=== PATIENT | male | born 1965 | race Caucasian/White ===

== ENCOUNTER 2019-06-20 10:10 | Outpatient (REF) | payer MEDICAID, SELFPAY ==
[2019-06-20 20:26] LABS: COMMENT (LAB VIEW ONLY) 122.82 mg/dL
[2019-06-20 20:43] LABS: ALT 78 U/L (16-63); AST 54 U/L (15-37); Albumin 4.4 g/dL (3.4-5.0); Alkaline Phosphatase 76 U/L (46-116); Anion Gap 11.9 mmol/L (3-11); BUN 12 mg/dL (7-18); Bilirubin, Total 1.1 mg/dL (0.2-1.0); CO2 28.1 mmol/L (21.0-32.0); CREATININE 1.05 mg/dL (0.70-1.30); Calcium 9.7 mg/dL (8.5-10.1); Chloride 100 mmol/L (98-107); Glucose 126 mg/dL (70-100); Potassium 4.1 mmol/L (3.5-5.1); Sodium 140 mmol/L (136-145); Total Protein 7.3 g/dL (6.4-8.2)
== END 2019-06-20 10:30 ==
LOC: NCHCN 10:10
PROVIDERS: Visit Provider Nurse Practitioner Family
DX: E11.9 Type 2 diabetes mellitus without complications (principal); I10 Essential (primary) hypertension; F10.21 Alcohol dependence, in remission; K76.0 Fatty (change of) liver, not elsewhere classified; E66.9 Obesity, unspecified
CPT/HCPCS: 80053; 82043; 82570

== ENCOUNTER 2020-06-02 10:08 | Outpatient (REF) | payer MEDICAID, SELFPAY ==
[2020-06-02 22:26] LABS: ALT 155 U/L (16-63); AST 96 U/L (15-37); Alkaline Phosphatase 60 U/L (46-116); Anion Gap 8.9 mmol/L (3-11); BUN 20 mg/dL (7-18); Bilirubin, Total 1.3 mg/dL (0.2-1.0); CO2 29.1 mmol/L (21.0-32.0); CREATININE 1.01 mg/dL (0.70-1.30); Calcium 9.7 mg/dL (8.5-10.1); Calculated LDL 77 mg/dL (<100); Chloride 102 mmol/L (98-107); Cholesterol 150 mg/dL (<200); Glucose 149 mg/dL (74-106); HDL Cholesterol 48 mg/dL (40-60); Magnesium 1.1 mg/dL (1.8-2.4); Potassium 3.2 mmol/L (3.5-5.1); Sodium 140 mmol/L (136-145); Total Protein 6.9 g/dL (6.4-8.2); Triglyceride 125 mg/dL (<150)
== END 2020-06-02 10:28 ==
LOC: NCHCN 10:08
PROVIDERS: Visit Provider Nurse Practitioner Family
DX: E11.9 Type 2 diabetes mellitus without complications (principal); I10 Essential (primary) hypertension; E78.5 Hyperlipidemia, unspecified
CPT/HCPCS: 80053; 80061; 83735

== ENCOUNTER 2020-06-08 11:43 | Outpatient (REF) | payer MEDICAID, SELFPAY ==
[2020-06-08 21:30] LABS: Magnesium 1.3 mg/dL (1.8-2.4); Potassium 3.6 mmol/L (3.5-5.1)
== END 2020-06-08 12:03 ==
LOC: NCHCN 11:43
PROVIDERS: PCP Nurse Practitioner Family; Visit Provider Nurse Practitioner Family
DX: E83.42 Hypomagnesemia (principal); E87.6 Hypokalemia
CPT/HCPCS: 83735; 84132

== ENCOUNTER 2020-06-24 13:07 | Outpatient (REF) | payer MEDICAID, SELFPAY ==
[2020-06-24 22:14] LABS: Magnesium 1.4 mg/dL (1.8-2.4)
== END 2020-06-24 13:27 ==
LOC: NCHCN 13:07
PROVIDERS: PCP Nurse Practitioner Family; Visit Provider Nurse Practitioner Family
DX: E83.42 Hypomagnesemia (principal)
CPT/HCPCS: 83735

== ENCOUNTER 2020-11-30 14:22 | Outpatient (REF) | payer MEDICAID, SELFPAY ==
[2020-11-30 22:02] LABS: ALT 79 U/L (16-63); AST 88 U/L (15-37); Alkaline Phosphatase 63 U/L (46-116); Anion Gap 11.2 mmol/L (3-11); BUN 11 mg/dL (7-18); Bilirubin, Total 0.8 mg/dL (0.2-1.0); CO2 27.8 mmol/L (21.0-32.0); CREATININE 0.9 mg/dL (0.70-1.30); Calcium 9.2 mg/dL (8.5-10.1); Chloride 99 mmol/L (98-107); Glucose 115 mg/dL (74-106); Magnesium 1.6 mg/dL (1.8-2.4); Potassium 3.7 mmol/L (3.5-5.1); Sodium 138 mmol/L (136-145)
[2020-11-30 22:08] LABS: COMMENT (LAB VIEW ONLY) 15.95 mg/dL; Microalb ug/mg Crea 23.8 ug/mg Cr
== END 2020-11-30 14:23 | disposition home or self-care (01) ==
LOC: NCHCN 14:22
PROVIDERS: PCP Nurse Practitioner Family; Visit Provider Nurse Practitioner Family
DX: E11.9 Type 2 diabetes mellitus without complications (principal); K76.0 Fatty (change of) liver, not elsewhere classified; I10 Essential (primary) hypertension; E83.42 Hypomagnesemia
CPT/HCPCS: 80053; 82043; 82570; 83735

== ENCOUNTER 2021-11-16 14:55 | Outpatient (REF) | payer MEDICAID, SELFPAY | END 2021-11-16 14:56 | disposition home or self-care (01) | LOC: NCHCN 14:55 | PROVIDERS: PCP Nurse Practitioner Family; Visit Provider Nurse Practitioner Family ==

== ENCOUNTER 2022-01-05 09:38 | Outpatient (REF) | payer MEDICAID, SELFPAY ==
[2022-01-05 14:42] LABS: HCT 42.2 % (40.0-50.0); HGB 14.3 g/dL (13.5-17.5); MCH 33.1 pg (27.0-33.0); MCHC 33.9 % (32.0-36.0); MCV 98 fL (80-95); MPV 10.1 fL (8.0-11.0); Platelet Count 146 10^3/uL (130-400); RBC 4.32 10^6/uL (4.36-5.78); RDW 12.3 % (11.8-14.1); RDW-SD 44.9 fL; WBC 5.59 10^3/uL (4.4-10.8)
[2022-01-05 15:00] LABS: Prothrombin Time 10.2 sec (9.3-11.0)
[2022-01-05 15:17] LABS: ALT 66 U/L (16-63); AST 86 U/L (15-37); Albumin 4.3 g/dL (3.4-5.0); Alkaline Phosphatase 82 U/L (46-116); Anion Gap 14.4 mmol/L (3-11); BUN 24 mg/dL (7-18); CO2 28.6 mmol/L (21.0-32.0); CREATININE 1.4 mg/dL (0.70-1.30); Calcium 9.3 mg/dL (8.5-10.1); Chloride 96 mmol/L (98-107); Estimated GFR 52.24 (mL/min/1.73m2); Glucose 172 mg/dL (74-106); Magnesium 0.9 mg/dL (1.8-2.4); Sodium 139 mmol/L (136-145); Total Protein 7.5 g/dL (6.4-8.2); Vitamin B12 596 pg/mL (193-986)
[2022-01-05 15:24] LABS: Hemoglobin A1C 6.6 % (<5.7)
[2022-01-05 15:27] LABS: Potassium 2.9 mmol/L (3.5-5.1)
[2022-01-05 15:38] LABS: Bilirubin, Total 2.3 mg/dL (0.2-1.0)
== END 2022-01-05 09:39 | disposition home or self-care (01) ==
LOC: NCHCN 09:38
PROVIDERS: PCP Nurse Practitioner Family; Visit Provider Nurse Practitioner Family
DX: E78.5 Hyperlipidemia, unspecified (principal); K76.0 Fatty (change of) liver, not elsewhere classified; F10.20 Alcohol dependence, uncomplicated; E83.42 Hypomagnesemia; I10 Essential (primary) hypertension; E11.9 Type 2 diabetes mellitus without complications; E87.6 Hypokalemia; R74.8 Abnormal levels of other serum enzymes
CPT/HCPCS: 80053; 85027; 82607; 83036; 83735; 85610

== ENCOUNTER 2022-01-06 10:01 | Outpatient (REF) | payer MEDICAID, SELFPAY ==
[2022-01-06 15:12] LABS: Potassium 3.5 mmol/L (3.5-5.1)
== END 2022-01-06 10:02 | disposition home or self-care (01) ==
LOC: NCHCN 10:01
PROVIDERS: PCP Nurse Practitioner Family; Visit Provider Nurse Practitioner Family
DX: E87.6 Hypokalemia (principal)
CPT/HCPCS: 84132

== ENCOUNTER 2022-07-05 14:49 | Outpatient (REF) | payer MEDICAID, SELFPAY ==
[2022-07-05 21:47] LABS: COMMENT (LAB VIEW ONLY) 41.91 mg/dL; Microalb ug/mg Crea 60.4 ug/mg Cr
== END 2022-07-05 14:50 | disposition home or self-care (01) ==
LOC: NCHCN 14:49
PROVIDERS: PCP Nurse Practitioner Family; Visit Provider Nurse Practitioner Family
DX: E11.9 Type 2 diabetes mellitus without complications (principal)
CPT/HCPCS: 82043; 82570

== ENCOUNTER 2022-12-29 17:31 | Outpatient (REF) | payer MEDICAID, SELFPAY ==
[2022-12-29 14:51] LABS: HCT 42.6 % (40.0-50.0); HGB 14.3 g/dL (13.5-17.5); MCH 32.8 pg (27.0-33.0); MCHC 33.6 % (32.0-36.0); MCV 98 fL (80-95); MPV 10.1 fL (8.0-11.0); Platelet Count 178 10^3/uL (130-400); RBC 4.36 10^6/uL (4.36-5.78); RDW 11.9 % (11.8-14.1); RDW-SD 43.2 fL; WBC 3.44 10^3/uL (4.4-10.8)
[2022-12-29 15:02] LABS: Prothrombin Time 10.4 sec (9.3-11.0)
[2022-12-29 15:16] LABS: ALT 75 U/L (16-63); AST 67 U/L (15-37); Albumin 4.1 g/dL (3.4-5.0); Alkaline Phosphatase 89 U/L (46-116); BUN 14 mg/dL (7-18); Bilirubin, Total 1.7 mg/dL (0.2-1.0); CREATININE 1.2 mg/dL (0.70-1.30); Calcium 9.7 mg/dL (8.5-10.1); Chloride 104 mmol/L (98-107); Glucose 117 mg/dL (74-106); Potassium 3.6 mmol/L (3.5-5.1); Sodium 144 mmol/L (136-145); TSH (W/Ref FT4) 2.13 uIU/mL (0.36-3.74); Total Protein 7.8 g/dL (6.4-8.2)
[2022-12-29 15:26] LABS: Hemoglobin A1C 6.4 % (<5.7)
== END 2022-12-29 17:32 | disposition home or self-care (01) ==
LOC: NCHCN 17:31
PROVIDERS: PCP Nurse Practitioner Family; Visit Provider Nurse Practitioner Family
DX: I48.0 Paroxysmal atrial fibrillation (principal); I10 Essential (primary) hypertension; E11.9 Type 2 diabetes mellitus without complications; E83.42 Hypomagnesemia
CPT/HCPCS: 80053; 85027; 83036; 83735; 84443; 85610

== ENCOUNTER 2023-07-17 21:04 | Outpatient (REF) | payer MEDICAID, SELFPAY ==
[2023-07-17 21:58] LABS: COMMENT (LAB VIEW ONLY) 161.65 mg/dL; Microalb ug/mg Crea 13.3 ug/mg Cr
== END 2023-07-17 21:05 | disposition home or self-care (01) ==
LOC: NCHCN 21:04
PROVIDERS: PCP Nurse Practitioner Family; Visit Provider Nurse Practitioner Family
DX: E11.9 Type 2 diabetes mellitus without complications (principal)
CPT/HCPCS: 82043; 82570

== ENCOUNTER 2024-01-18 09:54 | Outpatient (REF) | payer MEDICAID, SELFPAY ==
[2024-01-18 14:46] LABS: HCT 37.1 % (40.0-50.0); HGB 13.2 g/dL (13.5-17.5); MCH 34.4 pg (27.0-33.0); MCHC 35.6 % (32.0-36.0); MCV 97 fL (80-95); MPV 9.2 fL (8.0-11.0); Platelet Count 136 10^3/uL (130-400); RBC 3.84 10^6/uL (4.36-5.78); RDW 12.4 % (11.8-14.1); RDW-SD 43.2 fL; WBC 4.32 10^3/uL (4.4-10.8)
[2024-01-18 15:10] LABS: ALT 34 U/L (16-63); AST 75 U/L (15-37); Albumin 3.5 g/dL (3.4-5.0); Alkaline Phosphatase 79 U/L (46-116); Anion Gap 10.6 mmol/L (3-11); BUN 4 mg/dL (7-18); CO2 28.4 mmol/L (21.0-32.0); CREATININE 0.9 mg/dL (0.70-1.30); Calcium 9.5 mg/dL (8.5-10.1); Chloride 87 mmol/L (98-107); Estimated GFR 98.38 (mL/min/1.73m2); Glucose 139 mg/dL (74-106); Magnesium 0.8 mg/dL (1.8-2.4); Potassium 3.6 mmol/L (3.5-5.1); Sodium 126 mmol/L (136-145); Total Protein 7.3 g/dL (6.4-8.2)
[2024-01-18 15:20] LABS: Hemoglobin A1C 6.4 % (<5.7)
== END 2024-01-18 09:55 | disposition home or self-care (01) ==
LOC: NCHCN 09:54
PROVIDERS: PCP Nurse Practitioner Family; Visit Provider Nurse Practitioner Family
DX: E11.9 Type 2 diabetes mellitus without complications (principal); I10 Essential (primary) hypertension; E83.42 Hypomagnesemia; Z13.0 Encounter for screening for diseases of the blood and blood-forming organs and certain disorders involving the immune mechanism
CPT/HCPCS: 80053; 85027; 83036; 83735

== ENCOUNTER 2024-02-14 11:23 | Outpatient (REF) | payer MEDICAID, SELFPAY ==
[2024-02-14 14:28] LABS: Abs Immature Grans 0.01 10^3/uL (0.0-0.06); Absolute Basophil Count 0.04 10^3/uL (0.0-0.2); Absolute Eosinophil Count 0.09 10^3/uL (0.0-0.7); Absolute Lymphocyte Count 0.82 10^3/uL (1.2-3.4); Absolute Monocyte Count 0.49 10^3/uL (0.1-0.8); Absolute Neutrophil Count 2.14 10^3/uL (1.2-6.7); Basophils % 1.1 %; Eosinophils % 2.5 %; HCT 35.5 % (40.0-50.0); HGB 12.5 g/dL (13.5-17.5); Immature Grans % 0.3 %; Lymphocytes % 22.8 %; MCH 34.2 pg (27.0-33.0); MCHC 35.2 % (32.0-36.0); MCV 97 fL (80-95); MPV 9.6 fL (8.0-11.0); Monocytes % 13.6 %; Neutrophils % 59.7 %; Platelet Count 117 10^3/uL (130-400); RBC 3.66 10^6/uL (4.36-5.78); RDW 13.3 % (11.8-14.1); RDW-SD 47.5 fL; WBC 3.59 10^3/uL (4.4-10.8)
[2024-02-14 14:35] LABS: Iron 95 ug/dL (65-175); Total Iron Binding Capacity 286 ug/dL (250-450); Transferrin Sat 33 % (20-55)
[2024-02-14 15:01] LABS: Ferritin 458 ng/mL (26-388); Folate 11.1 ng/mL (8.6-20.0); Vitamin B12 487 pg/mL (193-986)
[2024-02-15 10:05] LABS: ALT 43 U/L (16-63); AST 66 U/L (15-37); Albumin 3.6 g/dL (3.4-5.0); Alkaline Phosphatase 91 U/L (46-116); Anion Gap 13.9 mmol/L (3-11); BUN 4 mg/dL (7-18); Bilirubin, Total 1.42 mg/dL (0.2-1.0); CO2 26.1 mmol/L (21.0-32.0); CREATININE 0.8 mg/dL (0.70-1.30); Calcium 8.8 mg/dL (8.5-10.1); Chloride 94 mmol/L (98-107); Estimated GFR 101.95 (mL/min/1.73m2); Glucose 126 mg/dL (74-106); Magnesium 0.8 mg/dL (1.8-2.4); Potassium 3.5 mmol/L (3.5-5.1); Sodium 134 mmol/L (136-145); Total Protein 6.9 g/dL (6.4-8.2)
== END 2024-02-14 11:24 | disposition home or self-care (01) ==
LOC: NCHCN 11:23
PROVIDERS: PCP Nurse Practitioner Family; Visit Provider Nurse Practitioner Family
DX: D64.9 Anemia, unspecified (principal); I10 Essential (primary) hypertension; E11.9 Type 2 diabetes mellitus without complications; R79.89 Other specified abnormal findings of blood chemistry; E83.42 Hypomagnesemia; R68.89 Other general symptoms and signs
CPT/HCPCS: 80053; 82607; 82728; 82746; 83540; 83550; 83735; 85025

== ENCOUNTER 2024-07-15 11:49 | Outpatient (REF) | payer MEDICAID, SELFPAY ==
[2024-07-15 16:26] LABS: COMMENT (LAB VIEW ONLY) 56.76 mg/dL; Microalb ug/mg Crea 27.7 ug/mg Cr
== END 2024-07-15 11:50 | disposition home or self-care (01) ==
LOC: NCHCN 11:49
PROVIDERS: PCP Nurse Practitioner Family; Visit Provider Nurse Practitioner Family
DX: E11.9 Type 2 diabetes mellitus without complications (principal)
CPT/HCPCS: 82043; 82570

== ENCOUNTER 2024-11-26 15:30 | Outpatient (REF) | payer MEDICAID, SELFPAY ==
[2024-11-26 21:55] LABS: INR 1.2 (0.9-1.1); Prothrombin Time 11.5 sec (9.1-11.1)
[2024-11-26 22:00] LABS: HCT 35.9 % (40.0-50.0); HGB 12.1 g/dL (13.5-17.5); MCH 34.2 pg (27.0-33.0); MCHC 33.7 % (32.0-36.0); MCV 101 fL (80-95); MPV 9.3 fL (8.0-11.0); Platelet Count 125 10^3/uL (130-400); RBC 3.54 10^6/uL (4.36-5.78); RDW 13.5 % (11.8-14.1); RDW-SD 50.8 fL
[2024-11-26 22:18] LABS: ALT 23 U/L (16-63); AST 53 U/L (15-37); Albumin 3.2 g/dL (3.4-5.0); Alkaline Phosphatase 141 U/L (46-116); Anion Gap 11.9 mmol/L (3-11); BUN 4 mg/dL (7-18); Bilirubin, Total 1.2 mg/dL (0.2-1.0); CO2 25.1 mmol/L (21.0-32.0); CREATININE 0.8 mg/dL (0.70-1.30); Calcium 8.8 mg/dL (8.5-10.1); Chloride 97 mmol/L (98-107); Estimated GFR 101.32 (mL/min/1.73m2); Glucose 129 mg/dL (74-106); Potassium 3.8 mmol/L (3.5-5.1); Sodium 134 mmol/L (136-145); Total Protein 7.1 g/dL (6.4-8.2)
[2024-11-26 22:46] LABS: COMMENT (LAB VIEW ONLY) 71.94 mg/dL; Microalb ug/mg Crea 146.5 ug/mg Cr
[2024-11-27 13:48] LABS: Abs Immature Grans 0.02 10^3/uL (0.0-0.06); Absolute Basophil Count 0.04 10^3/uL (0.0-0.2); Absolute Eosinophil Count 0.02 10^3/uL (0.0-0.7); Absolute Lymphocyte Count 0.74 10^3/uL (1.2-3.4); Absolute Monocyte Count 0.39 10^3/uL (0.1-0.8); Absolute Neutrophil Count 2.12 10^3/uL (1.2-6.7); Basophils % 1.2 %; Eosinophils % 0.6 %; Immature Grans % 0.6 %; Lymphocytes % 22.2 %; Monocytes % 11.7 %; Neutrophils % 63.7 %
[2024-11-27 15:34] LABS: Hemoglobin A1C 5.9 % (<5.7)
[2024-11-28 11:38] LABS: Hepatitis C Ab w Rflx HCV PCR Negative (Negative)
== END 2024-11-26 15:31 | disposition home or self-care (01) ==
LOC: NCHCN 15:30
PROVIDERS: PCP Nurse Practitioner Family; Visit Provider Nurse Practitioner Family
DX: R60.0 Localized edema (principal); F10.10 Alcohol abuse, uncomplicated; K76.0 Fatty (change of) liver, not elsewhere classified
CPT/HCPCS: 80053; 85027; 86803; 82043; 82570; 83036; 85007; 85610

== ENCOUNTER 2024-12-30 13:49 | Outpatient (REF) | payer MEDICAID, SELFPAY ==
[2024-12-30 14:57] LABS: HCT 38.4 % (40.0-50.0); HGB 13.5 g/dL (13.5-17.5); MCH 33.7 pg (27.0-33.0); MCHC 35.2 % (32.0-36.0); MCV 96 fL (80-95); MPV 10.3 fL (8.0-11.0); RBC 4.01 10^6/uL (4.36-5.78); RDW 12.4 % (11.8-14.1); WBC 3.94 10^3/uL (4.4-10.8)
[2024-12-30 15:14] LABS: Platelet Count 99 10^3/uL (130-400)
[2024-12-30 15:38] LABS: Hemoglobin A1C 5.5 % (<5.7)
[2024-12-30 16:18] LABS: ALT 37 U/L (16-63); AST 100 U/L (15-37); Albumin 3.3 g/dL (3.4-5.0); Alkaline Phosphatase 122 U/L (46-116); Anion Gap 14.1 mmol/L (3-11); BUN 3 mg/dL (7-18); Bilirubin, Total 1.3 mg/dL (0.2-1.0); CO2 22.9 mmol/L (21.0-32.0); CREATININE 0.8 mg/dL (0.70-1.30); Calcium 9.2 mg/dL (8.5-10.1); Chloride 94 mmol/L (98-107); Estimated GFR 101.32 (mL/min/1.73m2); Glucose 139 mg/dL (74-106); Potassium 3.8 mmol/L (3.5-5.1); Sodium 131 mmol/L (136-145)
[2024-12-31 12:52] LABS: Hepatitis C Ab w Rflx HCV PCR Negative (Negative)
[2024-12-31 19:04] LABS: Calculated LDL 48 mg/dL (<100); Cholesterol 112 mg/dL (<200); HDL Cholesterol 49 mg/dL (>or=40); Triglyceride 79 mg/dL (<150)
== END 2024-12-30 13:50 | disposition home or self-care (01) ==
LOC: NCHCN 13:49
PROVIDERS: PCP Nurse Practitioner Family; Visit Provider Nurse Practitioner Family
DX: I48.0 Paroxysmal atrial fibrillation (principal); Z11.59 Encounter for screening for other viral diseases; E78.5 Hyperlipidemia, unspecified; K76.0 Fatty (change of) liver, not elsewhere classified; E11.9 Type 2 diabetes mellitus without complications
CPT/HCPCS: 80053; 80061; 85027; 86803; 83036

== ENCOUNTER 2025-01-23 12:45 | Outpatient (REF) | payer MEDICAID, SELFPAY ==
[2025-01-23 15:57] LABS: Anion Gap 11.6 mmol/L (3-11); BUN 5 mg/dL (7-18); CO2 27.4 mmol/L (21.0-32.0); CREATININE 0.8 mg/dL (0.70-1.30); Calcium 8.7 mg/dL (8.5-10.1); Chloride 78 mmol/L (98-107); Estimated GFR 101.32 (mL/min/1.73m2); Glucose 129 mg/dL (74-106); Magnesium 1.1 mg/dL (1.8-2.4)
[2025-01-23 16:21] LABS: Sodium 117 mmol/L (136-145)
== END 2025-01-23 12:46 | disposition home or self-care (01) ==
LOC: NCHCN 12:45
PROVIDERS: PCP Nurse Practitioner Family; Visit Provider Nurse Practitioner Family
DX: K70.30 Alcoholic cirrhosis of liver without ascites (principal); E83.42 Hypomagnesemia
CPT/HCPCS: 80048; 83735

== ENCOUNTER 2025-01-30 09:25 | Outpatient (REF) | payer MEDICAID, SELFPAY ==
[2025-01-30 15:54] LABS: Anion Gap 11.2 mmol/L (3-11); BUN 4 mg/dL (7-18); CO2 24.8 mmol/L (21.0-32.0); CREATININE 0.8 mg/dL (0.70-1.30); Calcium 9.2 mg/dL (8.5-10.1); Chloride 90 mmol/L (98-107); Estimated GFR 101.32 (mL/min/1.73m2); Glucose 159 mg/dL (74-106); Potassium 4.1 mmol/L (3.5-5.1); Sodium 126 mmol/L (136-145)
== END 2025-01-30 09:26 | disposition home or self-care (01) ==
LOC: NCHCN 09:25
PROVIDERS: PCP Nurse Practitioner Family; Visit Provider Nurse Practitioner Family
DX: E87.1 Hypo-osmolality and hyponatremia (principal)
CPT/HCPCS: 80048

== ENCOUNTER 2025-02-06 16:32 | Outpatient (REF) | payer MEDICAID, SELFPAY ==
[2025-02-06 16:56] LABS: Anion Gap 9.7 mmol/L (3-11); BUN 1 mg/dL (7-18); CO2 25.3 mmol/L (21.0-32.0); CREATININE 0.7 mg/dL (0.70-1.30); Calcium 8.9 mg/dL (8.5-10.1); Chloride 96 mmol/L (98-107); Estimated GFR 105.49 (mL/min/1.73m2); Glucose 108 mg/dL (74-106); Sodium 131 mmol/L (136-145)
== END 2025-02-06 16:33 | disposition home or self-care (01) ==
LOC: NCHCN 16:32
PROVIDERS: PCP Nurse Practitioner Family; Visit Provider Nurse Practitioner Family
DX: E87.1 Hypo-osmolality and hyponatremia (principal)
CPT/HCPCS: 80048

== ENCOUNTER 2025-06-16 13:14 | Outpatient (REF) | payer MEDICAID, SELFPAY ==
[2025-06-16 15:15] LABS: Abs Immature Grans 0.02 10^3/uL (0.0-0.06); HCT 37.3 % (40.0-50.0); HGB 13.3 g/dL (13.5-17.5); Immature Grans % 0.6 %; MCH 33.5 pg (27.0-33.0); MCHC 35.7 % (32.0-36.0); MCV 94 fL (80-95); MPV 9.5 fL (8.0-11.0); Platelet Count 104 10^3/uL (130-400); RBC 3.97 10^6/uL (4.36-5.78); RDW 12.1 % (11.8-14.1); RDW-SD 42.0 fL; WBC 3.26 10^3/uL (4.4-10.8)
[2025-06-16 15:33] LABS: Hemoglobin A1C 6.3 % (<5.7)
[2025-06-16 16:22] LABS: ALT 36 U/L (16-63); AST 68 U/L (15-37); Albumin 3.7 g/dL (3.4-5.0); Alkaline Phosphatase 101 U/L (46-116); Anion Gap 13.5 mmol/L (3-11); BUN 5 mg/dL (7-18); Bilirubin, Total 1.6 mg/dL (0.2-1.0); CO2 22.5 mmol/L (21.0-32.0); Calcium 8.9 mg/dL (8.5-10.1); Chloride 84 mmol/L (98-107); Estimated GFR 105.49 (mL/min/1.73m2); Folate 8.4 ng/mL (8.6-20.0); Glucose 108 mg/dL (74-106); Magnesium 1.5 mg/dL (1.8-2.4); Potassium 4.9 mmol/L (3.5-5.1); Total Protein 7.3 g/dL (6.4-8.2); Vitamin B12 515 pg/mL (193-986)
[2025-06-16 16:44] LABS: Sodium 120 mmol/L (136-145)
== END 2025-06-16 13:15 | disposition home or self-care (01) ==
LOC: NCHCN 13:14
PROVIDERS: PCP Nurse Practitioner Family; Visit Provider Nurse Practitioner Family
DX: D64.9 Anemia, unspecified (principal); K70.30 Alcoholic cirrhosis of liver without ascites; E83.42 Hypomagnesemia; E11.9 Type 2 diabetes mellitus without complications
CPT/HCPCS: 80053; 82607; 82746; 83036; 83735; 85025